=== PATIENT | male | born 2000 | race Caucasian/White ===

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

== ENCOUNTER 2021-08-13 20:25 | Emergency (ER) | payer MEDICAID ==
--- NOTE | 2021-08-13 23:36 | EDM.PDOC ---
ED HPI GENERAL MEDICAL PROBLEM - General Chief Complaint: Respiratory Problem Stated Complaint: NAUSEA, WEAKNESS, TIRED Time Seen by Provider: 08/13/21 23:29 - History of Present Illness INITIAL COMMENTS - FREE TEXT/NARRATIVE: HISTORY AND PHYSICAL: History of present illness: This is a healthy 21-year-old gentleman who presents ER today secondary to concern for Covid infection. 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 Patient ports he had cough and congestion and muscle aches. Patient reports a headache. Patient denies any nausea, vomiting, diarrhea, dysuria, frequency, urgency, chest pain, dull pain. Patient denies any shortness of breath while at rest. Patient reports that he does live with a roommate. Patient has no known Covid exposures. Patient has no Covid vaccination. Review of systems: As per history of present illness and below otherwise all systems reviewed and negative. Past medical history: As per history of present illness and as reviewed below otherwise noncontributory. Surgical history: As per history of present illness and as reviewed below otherwise noncontributory. Social history: No reported history of drug abuse. Family history: As per history of present illness and as reviewed below otherwise noncontributory. Physical exam: This patient was seen and evaluated during the 2019 SARS-CoV-2 novel coronavirus pandemic period. Community viral transmission is ongoing at time of this encounter and the emergency department is operating under pandemic response procedures. Constitutional: Patient is oriented to person, place, and time. Appears well- developed and well-nourished. No distress. HEENT: Moist mucous membranes Head: Normocephalic and atraumatic Eyes: Right eye exhibits no discharge. Left eye exhibits no discharge. No scleral icterus Neck: Normal range of motion. No tracheal deviation present. Cardiovascular: Normal rate and regular rhythm. Pulmonary: Effort normal, no respiratory distress. No wheezing rales or rhonchi Abdominal: No distention Musculoskeletal: Normal range of motion Neurologic: Alert and oriented to person, place and time. Skin: [place], warm and dry. Psychiatric: Normal mood and affect. Behavior is normal. Judgment and thought content normal. Nursing note and vital signs have been reviewed Diagnostics: Pulse ox 98% on room air Chest Xray: Normal cardiac silhouette No infiltrates or effusions identified. No PTX No evidence of acute bony fracture. As interpreted by ER MD: Dano Barrow: [] Assessment and plan: 21-year-old who presents ER today with his Covid symptoms. Patient's Covid test is positive. I have discussed with the patient return precautions. At this time, given limitations I do not feel that the patient would benefit from Regeneron therapy. Patient will continue taking ibuprofen and Tylenol as needed for muscle aches and fever. Patient has been instructed about return to the ED if he has any increased shortness of breath as well as purchasing a pulse oximeter so he went on his oxygen level. Reassessment at the time of disposition demonstrates that the patient is in no acute distress. The patient has remained stable throughout the entire ED visit and is without objective evidence for acute process requiring urgent intervention or hospitalization. The patient is stable for discharge, counseling is provided as documented above, discussed symptomatic treatment and specific conditions for return. I have spoken with the patient/caregiver and discussed todays findings, in ad dition to providing specific details for the plan of care. Questions are answered and there is agreement with the plan. Definitive disposition and diagnosis as appropriate pending reevaluation and re view of above. Generalized Pain Score (Numeric/FACES): 4 - Related Data Allergies Allergy/AdvReac Type Severity Reaction Status Date / Time No Known Allergies Allergy Verified 04/10/18 13:00 Home Meds: Home Meds . [No Known Home Meds] 08/13/21 [History] Past Medical History - Past Health History Medical/Surgical History: Denies Medical/Surgical History HEENT History: Reports: Otitis Media Cardiovascular History: Reports: None Respiratory History: Reports: None Gastrointestinal History: Reports: None Genitourinary History: Reports: None Musculoskeletal History: Reports: None Neurological History: Reports: None Psychiatric History: Reports: ADHD, Depression Endocrine/Metabolic History: Reports: None Hematologic History: Reports: None Immunologic History: Reports: None Oncologic (Cancer) History: Reports: None Dermatologic History: Reports: None - Past Surgical History Head Surgeries/Procedures: Reports: None HEENT Surgical History: Reports: None Cardiovascular Surgical History: Reports: None Respiratory Surgical History: Reports: None GI Surgical History: Reports: None Male Surgical History: Reports: None Endocrine Surgical History: Reports: None Neurological Surgical History: Reports: None Musculoskeletal Surgical History: Reports: None Oncologic Surgical History: Reports: None Dermatological Surgical History: Reports: None Social & Family History - Family History Family Medical History: No Pertinent Family History - Tobacco Use Tobacco Use Status *Q: Never Tobacco User Second Hand Smoke Exposure: No - Caffeine Use Caffeine Use: Reports: Soda - Recreational Drug Use Recreational Drug Use: No ED ROS GENERAL - Review of Systems Review Of Systems: See Below ED EXAM, GENERAL - Physical Exam Exam: See Below Course - Vital Signs Last Recorded V/S: Last Vital Signs Temp 96.9 F 08/13/21 21:49 Pulse 78 08/13/21 21:49 Resp 15 08/13/21 21:49 BP 134/88 08/13/21 21:49 Pulse Ox 100 08/13/21 21:49 - Orders/Labs/Meds Orders: Active Orders 24 hr Category Date Time Status Chest 2V [CR] Stat Exams 08/13/21 22:46 Taken Labs: Laboratory Tests 08/13/21 Range/Units 21:59 SARS-CoV-2 RNA ([facility]) POSITIVE H (NEGATIVE) Departure - Departure Time of Disposition: 23:35 Disposition: Home, Self-Care 01 Condition: Good Clinical Impression: COVID-19 virus infection - Discharge Information Instructions: 10 Things You Can Do to Manage Your COVID-19 Symptoms at Home - CDC (05/30/2021), COVID-19: Quarantine vs. Isolation - [facility] [place] (10/31/2020) Referrals: PCP,None [Primary Care Provider] - Additional Instructions: You were seen and evaluated in the ER today secondary to sinus symptoms consistent with Covid infection. Your Covid test today is indeed positive. Your oxygen level and x-ray are excellent. I recommend purchasing a pulse oximeter at the pharmacy so they can keep an eye on your oxygen level. If your oxygen level drops below 90% if you start experiencing increasing shortness of breath, please return to the ER so that we can reevaluate you. You can take ibuprofen and Tylenol as needed for fever and muscle aches. 1. Your COVID-19 screening is positive. That means you do have the coronavirus and you are considered contagious. Your vital signs and oxygen saturation are well enough that you were able to monitor your symptoms at home. Continue to monitor for trouble breathing, new confusion or inability to arouse, bluish lips or face or any of the other symptoms we discussed -if this occurs please return to the emergency room. 2. Please self quarantine over the next 10 days. Inform any persons that you have been in contact with since you started becoming symptomatic that you have tested positive; they should be made aware and take the appropriate steps as needed. 3. You can take NyQuil during the evening to help get a restful night sleep. May alternate Tylenol and ibuprofen as needed for pain and fever management. 4. [facility] will [facility] calling you and following up with you. The [place] [facility] Hotline phone number , They are open Wednesday - Wednesday 7am - 7pm. Follow up with your primary care provider for re-evaluation and re-testing after the 10 day quarantine and discuss when you should be seen. The following information is given to patients seen in the emergency department who are being discharged to home. This information is to outline your options for follow-up care. We provide all patients seen in our emergency department with a follow-up referral. The need for follow-up, as well as the timing and circumstances, are variable depending upon the specifics of your emergency department visit. If you don't have a primary care physician on staff, we will provide you with a referral. We always advise you to contact your personal physician following an emergency department visit to inform them of the circumstance of the visit and for follow-up with them and/or the need for any referrals to a consulting specialist. The emergency department will also refer you to a specialist when appropriate. This referral assures that you have the opportunity for follow-up care with a specialist. All of these measure are taken in an effort to provide you with optimal care, which includes your follow-up. Under all circumstances we always encourage you to contact your private physician who remains a resource for coordinating your care. When calling for follow-up care, please make the office aware that this follow-up is from your recent emergency room visit. If for any reason you are refused follow-up, please contact the [facility] Emergency Department at and asked to speak to the emergency department charge nurse. [facility] - Primary Care [address] [place] [address] [id number] [place] [address] Sepsis Event Note (ED) - Focused Exam Vital Signs: Vital Signs Temp Pulse Resp BP Pulse Ox 08/13/21 21:49 96.9 F 78 15 134/88 100 - My Orders Last 24 Hours: My Active Orders 08/13/21 22:46 Chest 2V [CR] Stat - Assessment/Plan Last 24 Hours: My Active Orders 08/13/21 22:46 Chest 2V [CR] Stat
--- NOTE | 2021-08-14 00:18 | CR ---
Indication: Cough and COVID positive Technique: Chest 2 views Comparison: None Findings/Impression: Cardiovascular and mediastinum: Heart size and vasculature are normal in caliber and appearance. Mediastinum is within normal limits. Lungs and pleural spaces: Lungs are clear. No sign of infiltrate or mass. No sign of pleural effusion. No pneumothorax. Bones and soft tissues: No significant findings. Dictated by Jl Thompson MD @ 08/14/2021 12:16:39 AM (Electronically Signed)
== END 2021-08-13 23:44 | disposition home or self-care (01) ==
LOC: MW.ED 20:25
DX: U07.1 COVID-19 (principal)
CPT/HCPCS: 71046; 71046-26; 99285-25; U0002

== ENCOUNTER 2022-05-28 11:20 | Emergency (ER) | payer MEDICAID ==
[2022-05-28] MEDS ORDERED: Ondansetron 4 MG/2 ML SDV IVPUSH ONE (11:37)
[2022-05-28] MEDS ORDERED: Famotidine 20 MG/2 ML SDV IVPUSH ONE (11:37)
[2022-05-28] MEDS ORDERED: Sodium Chloride 0.9% 1,000 ML IV ONE (11:37)
[2022-05-28] MEDS ORDERED: Alum Hydro/Mag Hydro/Simeth XS 15 ML, Lidocaine 2% 5 ML PO ONE ×2 (11:38)
[2022-05-28 12:22] LABS: CARBON DIOXIDE,CO2 25.6 mmol/L (21.0-32.0); POTASSIUM,K 3.7 mmol/L (3.5-5.1)
== END 2022-05-28 13:10 | disposition home or self-care (01) ==
LOC: MW.ED 11:20
DX: K29.00 Acute gastritis without bleeding (principal); Z86.16 Personal history of COVID-19; Z20.822 Contact with and (suspected) exposure to COVID-19
CPT/HCPCS: 36415; 80053; 83690; 83735; 85025; 87635; 96361; 96374; 96375; 99284; A9270; J2405; J3490; J7030; U0002

== ENCOUNTER 2022-12-28 09:37 | Emergency (ER) | payer SELFPAY ==
[2022-12-28 10:40] LABS: CORONAVIRUS COVID-19 NAA NEGATIVE (NEGATIVE); INFLUENZA A NAA NEGATIVE (NEGATIVE); INFLUENZA B NAA NEGATIVE (NEGATIVE)
== END 2022-12-28 10:59 | disposition home or self-care (01) ==
LOC: MW.ED 09:37
DX: J32.9 Chronic sinusitis, unspecified (principal); Z20.822 Contact with and (suspected) exposure to COVID-19
CPT/HCPCS: 0240U; 99284

== ENCOUNTER 2023-05-13 11:05 | Day surgery (SDC) | payer MEDICAID ==
[~2023-05-13 11:05] MED LIST: Lactated Ringers 1,000 ML IV SCH; Propofol 200 MG/20 ML SDV ONE; Sodium Chloride 0.9% 10 ML Syringe FLUSH PRN; Sodium Chloride 0.9% 2.5 ML Syringe FLUSH PRN; Sodium Chloride 0.9% 20 ML SDV IV PRN
[2023-05-13] MEDS ORDERED: Propofol 200 MG/20 ML SDV ONE (11:44)
== END 2023-05-13 12:30 | disposition home or self-care (01) ==
LOC: MW.SDS 11:05
PROVIDERS: ATTEND Surgery
DX: K59.09 Other constipation (principal); E66.9 Obesity, unspecified; Z98.890 Other specified postprocedural states; Z86.16 Personal history of COVID-19; Z68.31 Body mass index [BMI] 31.0-31.9, adult
CPT/HCPCS: 45380; J2704; J7120

== ENCOUNTER 2024-10-14 14:53 | Emergency (ER) | payer BC | END 2024-10-14 15:54 | disposition home or self-care (01) | LOC: MW.ED 14:53 | DX: H66.91 Otitis media, unspecified, right ear (principal); R11.0 Nausea | CPT/HCPCS: 99283 ==

== ENCOUNTER 2025-05-04 10:17 | Emergency (ER) | payer BC ==
[2025-05-04] MEDS: Sodium Chloride 0.9% 1,000 ML IV ONE (11:03)
[2025-05-04] MEDS: Ondansetron 4 MG/2 ML SDV IVPUSH ONE (11:03)
[2025-05-04] MEDS: Ketorolac 30 MG/ML SDV IVPUSH ONE (11:03)
[2025-05-04 11:07] LABS: BASOPHILS ABSOLUTE AUTO 0.04 K/uL (0.00-0.20); BASOPHILS PERCENT AUTO 0.3 % (0.0-1.0); EOSINOPHILS ABSOLUTE AUTO 0.24 K/uL (0.00-0.45); EOSINOPHILS PERCENT AUTO 1.5 % (0.0-6.0); HEMATOCRIT 47.2 % (42.0-52.0); HEMOGLOBIN 16.3 g/dL (14.0-18.0); IMMATURE GRAN ABSOLUTE AUTO 0.06 K/uL (0.00-0.05); IMMATURE GRAN PERCENT AUTO 0.4 % (0.0-0.4); LYMPHOCYTES PERCENT AUTO 10.6 % (24.0-44.0); MEAN CORPUSCULAR HEMOGLOBIN 28.4 pg (28.0-32.0); MEAN CORPUSCULAR HGB CONC 34.5 g/dL (32.0-36.0); MEAN CORPUSCULAR VOLUME 82.2 fL (83.0-99.0); MONOCYTES ABSOLUTE AUTO 0.98 K/uL (0.00-0.80); MONOCYTES PERCENT AUTO 6.1 % (0.0-8.0); NEUTROPHILS ABSOLUTE AUTO 12.98 K/uL (1.80-7.70); NEUTROPHILS PERCENT AUTO 81.1 % (41.0-71.0); PLATELET COUNT,PLT 284 K/uL (150-400); RED BLOOD CELL COUNT 5.74 M/uL (4.52-5.90)
[2025-05-04 11:08] LABS: APPEARANCE,URINE CLEAR; GLUCOSE,URINE NEGATIVE (NEGATIVE); KETONES,URINE NEGATIVE (NEGATIVE); LEUKOCYTE ESTERASE,URINE NEGATIVE (NEGATIVE); NITRITE,URINE NEGATIVE (NEGATIVE); OCCULT BLOOD,URINE NEGATIVE (NEGATIVE); PROTEIN,URINE NEGATIVE (NEGATIVE)
[2025-05-04 11:10] LABS: BILIRUBIN,URINE SMALL (NEGATIVE); COLOR,URINE DARK YELLOW
[2025-05-04 11:34] LABS: A/G RATIO 1.1 (0.9-1.6); ALBUMIN 4.1 g/dL (3.4-5.0); BILIRUBIN TOTAL 2.1 mg/dL (0.2-1.0); CALCIUM 9.5 mg/dL (8.5-10.1); CARBON DIOXIDE,CO2 30.8 mmol/L (21.0-32.0); CREATININE 1.2 mg/dL (0.8-1.3); EST CRCL DRUG DOSING (CG) 104.19 mL/min; MAGNESIUM 1.8 mg/dL (1.8-2.4); POTASSIUM,K 3.6 mmol/L (3.5-5.1)
== END 2025-05-04 12:07 | disposition home or self-care (01) ==
LOC: MW.ED 10:17
DX: H66.91 Otitis media, unspecified, right ear (principal); D72.829 Elevated white blood cell count, unspecified; E86.0 Dehydration; Z79.899 Other long term (current) drug therapy; Z75.3 Unavailability and inaccessibility of health-care facilities
CPT/HCPCS: 36415; 80053; 81003; 83690; 83735; 85025; 96361; 96374; 96375; 99284; J1885; J2405; J7030; 99283

== ENCOUNTER 2025-05-07 07:51 | Emergency (ER) | payer BC ==
[2025-05-07] MEDS: Ibuprofen 600 MG Tab PO ONE (08:19)
[2025-05-07 08:46] LABS: CORONAVIRUS COVID-19 NAA NEGATIVE (NEGATIVE); INFLUENZA A NAA NEGATIVE (NEGATIVE); INFLUENZA B NAA NEGATIVE (NEGATIVE)
== END 2025-05-07 09:06 | disposition home or self-care (01) ==
LOC: MW.ED 07:51
DX: B34.9 Viral infection, unspecified (principal); Z79.899 Other long term (current) drug therapy
CPT/HCPCS: 0240U; 87651; 99283; A9270; 99282

== ENCOUNTER 2025-07-30 17:17 | Emergency (ER) | payer SELFPAY | END 2025-07-30 18:59 | disposition home or self-care (01) | LOC: MW.ED 17:17 | DX: J06.9 Acute upper respiratory infection, unspecified (principal); H66.91 Otitis media, unspecified, right ear; Z79.899 Other long term (current) drug therapy; Z75.3 Unavailability and inaccessibility of health-care facilities; Z86.16 Personal history of COVID-19 | CPT/HCPCS: 99283 ==